=== PATIENT | female | born 1990 | race Caucasian/White ===

== ENCOUNTER 2022-11-10 19:24 | Emergency (ER) | payer OTHER, SELFPAY ==
--- NOTE | ~2022-11-10 | XR_ITS ---
EXAMINATION: XR chest 2V DATE: 11/10/2022 21:01 INDICATION: Shortness of breath. TECHNIQUE: Frontal and lateral views of the chest were obtained. COMPARISON: None. FINDINGS: The chest demonstrates clear lungs without pneumonia, pleural effusion, or pneumothorax. Th e heart size is normal. Surgical clips in the right upper quadrant are likely from cholecystectomy. IMPRESSION: 1. No acute cardiopulmonary disease. Reviewed, dictated and finalized at location E.
[2022-11-10 19:32] VITALS: BP 131/58; PULSE 121; RESP 16; TEMP 37.3; O2SAT 100
--- NOTE | 2022-11-10 20:35 | ECG_ITS ---
Measurements Intervals [place] Rate: 108 P: 30 UT: 139 QRS: 29 QRSD: 71 T: 30 QT: 310 QTc: 417 Interpretive Statements SINUS TACHYCARDIA EARLY PRECORDIAL R/S TRANSITION BASELINE ARTIFACT- I, II, AVR, AVL, V1 ABNORMAL ECG NO PREVIOUS ECG AVAILABLE FOR COMPARISON Electronically Signed On 11-11-2022 8:14:10 CDT by Agustin Au D.O.
[2022-11-10 20:37] VITALS: PULSE 119; RESP 22; O2SAT 100
[2022-11-10 20:45] VITALS: BP 110/72; PULSE 101; RESP 25; O2SAT 100
[2022-11-10 20:46] VITALS: PULSE 110; RESP 27; O2SAT 100
[2022-11-10 20:56] LABS: Basophils Percent Auto 0.2 % (0.2-1.2); Eosinophils Percent Auto 0.3 % (0-4.4); Hematocrit 40.4 % (37.0-47.0); Hemoglobin 13.1 g/dL (12.0-15.0); Immature Granulocyte Absolute 0.01 K/mm3 (0.00-0.031); Immature Granulocyte Percent A 0.2 % (0-0.5); Lymphocytes Absolute Auto 0.87 K/mm3 (0.9-3.2); Lymphocytes Percent Auto 13.2 % (18.3-44.2); Mean Corpuscular HGB Conc 32.4 g/dl (32-36); Mean Corpuscular Hemoglobin 28.7 pg (26-34); Mean Corpuscular Volume 88.4 fl (80-100); Mean Platelet Volume 9.4 fl (7.4-10.4); Monocytes Absolute Auto 0.5 K/mm3 (0.1-0.6); Monocytes Percent Auto 7.4 % (2.6-8.5); Neutrophils Absolute Auto 5.2 K/mm3 (1.3-6.7); Neutrophils Percent Auto 78.7 % (45.5-73.1); Platelet Count Result 245 k/mm3 (150-375); Red Blood Count 4.57 M/mm3 (4.2-5.4); Red Cell Distribution Width 12.6 % (11.5-14.5); White Blood Count 6.6 K/mm3 (4.5-10.0)
[2022-11-10 21:06] LABS: Alanine Aminotransferase 26 U/L (6-35); Albumin Level 4.1 g/dL (3.5-5.1); Alkaline Phosphatase 124 U/L (38-126); Anion Gap 5 mmol/L (8-16); Aspartate Amino Transferase 26 U/L (14-36); Bilirubin,Total 0.8 mg/dL (0.2-1.3); Blood Urea Nitrogen 10 mg/dL (7-17); Calcium 9.3 mg/dL (8.4-10.2); Carbon Dioxide 28 mmol/L (22-30); Chloride 103 mmol/L (98-107); Estimated CRCL calculation 136 ml/min; Estimated Glomerular Filt Rate > 60; Glucose 91 mg/dL (65-110); Potassium 4.2 mmol/L (3.4-5.0); Sodium 136 mmol/L (137-145)
--- NOTE | 2022-11-10 21:08 | ED.GENADULT ---
HPI - General Adult General Chief complaint: Recheck/Abnormal Lab/Rx Stated complaint: abdominal pain, fever Time Seen by Provider: 11/10/22 20:52 History of Present Illness HPI narrative: This is a 31-year-old female, with recent diagnosis of hyperthyroidism (thought to be Wendy's, pending ultrasound) who presents to the emergency department complaining of cramping lower abdominal pain and lightheadedness. She states her symptoms began this morning, pain is rated 4/10, does not radiate and is not associated with nausea, vomiting or loose stools. Patient states she took a hot bath earlier, became lightheaded prompting her to come to the emergency department. Related Data Allergies Allergy/AdvReac Type Severity Reaction Status Date / Time azithromycin Allergy Diarrhea Verified 11/10/22 20:46 penicillin G Allergy Nausea and Verified 11/10/22 20:46 Vomiting sulfamethoxazole Allergy Nausea and Verified 11/10/22 20:46 [From Bactrim] Vomiting trimethoprim [From Bactrim] Allergy Nausea and Verified 11/10/22 20:46 Vomiting Review of Systems Review of Systems: CONSTITUTIONAL: Denies fever, chills, or sweats. CARDIOVASCULAR: Denies chest pain, palpitations, or edema. RESPIRATORY: Denies cough or dyspnea. GASTROINTESTINAL: Cramping abdominal pain denies nausea, vomiting, or diarrhea. GENITOURINARY: Denies dysuria or hematuria. SKIN: Denies rash or itching. MUSCULOSKELETAL: Denies back pain, joint pain, or myalgia. NEUROLOGIC: Intermittent lightheadedness denies numbness, dizziness, or weakness. PSYCHIATRIC: Denies anxiety or depression. PMFSH Past Medical History Medical History Hyperthyroidism Surgical History Surgical History (Updated 11/10/22 @ 21:10 by Naif Wilson MD) History of cholecystectomy Social History Social History (Updated 11/10/22 @ 21:10 by Naif Wilson MD) Smoking status: Former smoker Alcohol intake: current Substance use: never Exam Narrative: GENERAL: Well-developed, well-nourished, and in no acute distress. HEAD: Normocephalic, atraumatic. EYES: PERRLA and EOMI. ENT: Nares clear, no rhinorrhea or epistaxis. Mucous membranes moist. Oropharynx without tonsillar hypertrophy exudate or other lesions. CHEST: Clear to auscultation. No respiratory distress. No wheezes rales or rhonchi HEART: Tachycardic with regular rhythm. No murmur heard. Normal peripheral pulses. ABDOMEN: Soft, nontender, nondistended, normal active bowel sounds. EXTREMITIES: Normal range of motion. No edema. SKIN: Warm, dry, no rash. NEURO: No focal deficits. Alert and oriented x3. PSYCH: Normal mood and affect. Course Course Emergency Course: 21:11 - White blood cell count within normal limits at 6.6 with left shift. CBC otherwise unremarkable. Chemistries demonstrate mild hyponatremia at 136 but are otherwise unremarkable. Chest x-ray unremarkable. Will obtain TSH, test and UA, give fluids and treat pain. 22:35 - UA consistent with urinary tract infection. A test is negative. TSH diminished, consistent with the patient's reported history of hypothyroidism. The patient's heart rate improved after fluids, though is still tachycardic to the 110s. Her exam is not concerning for thyroid storm. Will discharge with antibiotics. The patient states she transferred her prescribed medications by her primary care doctor to a local pharmacy and will pick them up tomorrow. Discussed return and emergency precautions including signs/symptoms of sepsis. The patient voiced understanding and is comfortable with the plan. All questions answered to her satisfaction. Vital Signs Vital signs: Vital Signs Temperature 99.1 F 11/10/22 19:32 Pulse Rate 121 H 11/10/22 19:32 Respiratory Rate 16 11/10/22 19:32 Blood Pressure 131/58 L 11/10/22 19:32 Pulse Oximetry 100 11/10/22 19:32 Oxygen Delivery Room Air
[2022-11-10] MEDS: ACETAMINOPHEN 500 MG TABLET 1000 MG PO (21:16)
[2022-11-10] MEDS: SODIUM CHLORIDE 0.9% IV 2,000 ML 999 ML IV CONT (21:16)
[2022-11-10 21:30] LABS: Lipase 119 U/L (23-300)
[2022-11-10 21:37] LABS: Appearance Urine Clear (Clear); Bilirubin Urine Negative (Negative); Blood Urine Negative (Negative); Color Urine Yellow (Yellow); Glucose Urine UA Negative (Negative); Ketones Urine Negative (Negative); Leukocyte Esterase Ur Negative LEU/UL (Negative); Nitrate Urine Negative (Negative); Protein Urine Negative (Negative); Specific Grav Ur 1.014 (1.001-1.035); pH Urine 8.5 (5.0-9.0)
[2022-11-10 21:41] LABS: Add Urine Microscopic? NO
[2022-11-10 22:28] LABS: Thyroid Stimulating Hormone Reflex < 0.015 uIU/mL (0.465-4.68)
[2022-11-10] MEDS: CEPHALEXIN 500 MG CAPSULE PO (23:17)
[2022-11-10 23:41] LABS: Free T4 Free Thyroxine Reflex 2.94 ng/dL (0.78-2.19)
== END 2022-11-10 23:22 | disposition home or self-care (01) ==
PROVIDERS: Emergency Provider Preventive Medicine Aerospace Medicine
DX: N39.0 Urinary tract infection, site not specified (principal); E05.90 Thyrotoxicosis, unspecified without thyrotoxic crisis or storm; R00.0 Tachycardia, unspecified; Z87.891 Personal history of nicotine dependence
CPT/HCPCS: 36415; 71046; 80053; 81003; 81025; 83690; 84439; 84443; 85025; 93005; 96360; 96361; 99284; A9270; J7030